=== PATIENT | male | born 1950 | race Caucasian/White ===

== ENCOUNTER 2025-05-01 17:53 | Inpatient (IN) ==
[2025-05-01 19:25] LABS: Basophils # (Auto) 0.04 K/mcL (0.00-0.30); Basophils % (Auto) 0.3 % (0.0-2.0); Eosinophils # (Auto) 0.16 K/mcL (0.00-0.70); Eosinophils % (Auto) 1.3 % (0.0-7.0); Hematocrit 43.2 % (40.1-51.0); Hemoglobin 15.2 g/dL (13.7-17.5); Lymphocytes # (Auto) 1.43 K/mcL (1.50-4.80); Lymphocytes % (Auto) 12.0 % (15.5-49.0); Mean Corpuscular HGB Conc 35.2 g/dL (31.0-36.0); Monocytes # (Auto) 0.96 K/mcL (0.10-0.90); Monocytes % (Auto) 8.0 % (1.0-12.0); Neutrophils % (Auto) 78.1 % (38.0-78.0); Platelet Count 230 K/mcL (140-440); RBC 4.77 M/mcL (4.63-6.08); WBC 11.9 K/mcL (4.5-11.0)
[2025-05-01 19:45] LABS: ALT/SGPT 38 U/L (<40); AST/SGOT 26 U/L (<40); Albumin 4.3 gm/dL (3.2-5.2); Albumin/Globulin Ratio 1.7 (1.0-2.3); Alkaline Phosphatase 69 U/L (39-117); Anion Gap 14.0 (8.0-16.0); Bilirubin,Total 0.4 mg/dL (0.1-1.0); Blood Urea Nitrogen 9 mg/dL (8-23); Calcium 9.8 mg/dL (8.6-10.4); Carbon Dioxide 22 mmol/L (22-30); Chloride 100 mmol/L (96-108); Globulin 2.6 gm/dL (2.2-3.7); Glucose 118 mg/dL (70-105); Potassium 3.6 mmol/L (3.3-5.1); Sodium 136 mmol/L (133-145)
[2025-05-01 19:46] LABS: INR 0.9 (0.9-1.1); Prothrombin Time 12.9 sec (11.9-14.5)
[2025-05-01] MEDS ORDERED: DEXTROSE 50% 50 ML VIAL IV PRN (21:27)
[2025-05-01] MEDS ORDERED: ONDANSETRON 4 MG/2 ML VIAL IV PRN (21:27)
[2025-05-01] MEDS ORDERED: DEXTROSE 31 GM ORAL.SUSP PO PRN (21:27)
[2025-05-01] MEDS ORDERED: ACETAMINOPHEN 325 MG TABLET PO PRN (21:27)
[2025-05-01] MEDS ORDERED: MELATONIN 3 MG TABLET PO PRN (21:27)
[2025-05-01] MEDS ORDERED: MAG HYDROX/AL HYDROX/SIMETH 30 ML ORAL.SUSP PO PRN (21:27)
[2025-05-01] MEDS ORDERED: IPRATROPIUM/ALBUTEROL 3 ML AMPUL.NEB NEB PRN (21:27)
[2025-05-01] MEDS: LACTATED RINGERS 1,000 ML IV SCH (21:36)
[2025-05-01] MEDS: 0.9 % SODIUM CHLORIDE 10 ML SYRINGE IV SCH (21:44)
[2025-05-01] MEDS: INSULIN GLARGINE, HUMAN 1 UNIT/0.01 ML SQ SCH (21:54)
[2025-05-01] MEDS: PSYLLIUM HUSK 5.8 GM PACKET PO SCH (21:55)
[2025-05-01] MEDS: CARBOXYMETHYLCELLULOSE SODIUM 1 EACH DROPER.GEL OU SCH (21:55)
[2025-05-01] MEDS: ACETAMINOPHEN 1,000 MG/100 ML BAG IV PRN (23:22)
[2025-05-02 06:49] LABS: Basophils # (Auto) 0.03 K/mcL (0.00-0.30); Basophils % (Auto) 0.3 % (0.0-2.0); Eosinophils # (Auto) 0.30 K/mcL (0.00-0.70); Eosinophils % (Auto) 3.3 % (0.0-7.0); Hematocrit 42.1 % (40.1-51.0); Hemoglobin 14.7 g/dL (13.7-17.5); Lymphocytes # (Auto) 1.06 K/mcL (1.50-4.80); Lymphocytes % (Auto) 11.5 % (15.5-49.0); Mean Corpuscular HGB Conc 34.9 g/dL (31.0-36.0); Monocytes # (Auto) 0.72 K/mcL (0.10-0.90); Monocytes % (Auto) 7.8 % (1.0-12.0); Neutrophils % (Auto) 76.8 % (38.0-78.0); Platelet Count 235 K/mcL (140-440); RBC 4.63 M/mcL (4.63-6.08); WBC 9.2 K/mcL (4.5-11.0)
[2025-05-02 07:06] LABS: Anion Gap 13.0 (8.0-16.0); Blood Urea Nitrogen 9 mg/dL (8-23); Calcium 9.4 mg/dL (8.6-10.4); Carbon Dioxide 22 mmol/L (22-30); Chloride 100 mmol/L (96-108); Glucose 178 mg/dL (70-105); Potassium 3.7 mmol/L (3.3-5.1); Sodium 135 mmol/L (133-145)
[2025-05-02] MEDS: INSULIN LISPRO 1 UNIT/0.01 ML UNIT SQ SCH (07:47)
[2025-05-02] MEDS: LEVOTHYROXINE 150 MCG TABLET PO SCH (08:03)
[2025-05-02] MEDS: FISH OIL 1,000 MG CAPSULE PO SCH (08:03)
[2025-05-02] MEDS: TAMSULOSIN 0.4 MG CAPSULE PO SCH (08:03)
[2025-05-02] MEDS: POLYETHYLENE GLYCOL 3350 17 GM PACKET PO SCH (08:04)
[2025-05-02] MEDS ORDERED: NON FORMULARY MEDICATION 1 DOSE MISCELL (Losartan-Hydrochlorothiazide 100-12.5 mg tablet) PO SCH (09:00)
[2025-05-02] MEDS ORDERED: TRANEXAMIC ACID 1,000 MG/10 ML VIAL ONE ×2 (11:38→13:17)
[2025-05-02] MEDS ORDERED: PROPOFOL 200 MG/20 ML VIAL IV ONE ×2 (11:38→12:33)
[2025-05-02] MEDS ORDERED: ONDANSETRON 4 MG/2 ML VIAL ONE (11:38)
[2025-05-02] MEDS ORDERED: DEXAMETHASONE 10 MG/ML VIAL ONE (11:38)
[2025-05-02] MEDS ORDERED: LIDOCAINE 2% PF 5 ML VIAL ONE (11:38)
[2025-05-02] MEDS ORDERED: GLYCOPYRROLATE 0.2 MG/ML VIAL IV ONE ×2 (11:38→13:00)
[2025-05-02] MEDS ORDERED: fentaNYL 100 MCG/2 ML VIAL ONE (11:39)
[2025-05-02] MEDS ORDERED: ROCURONIUM 10 MG/ML ML IV ONE ×3 (11:39→13:01)
[2025-05-02] MEDS ORDERED: SUGAMMADEX SODIUM 200 MG/2 ML VIAL IV ONE (11:40)
[2025-05-02] MEDS ORDERED: IPRATROPIUM/ALBUTEROL 3 ML AMPUL.NEB NEB PRN ×2 (12:00→12:57)
[2025-05-02] MEDS ORDERED: SCOPOLAMINE 1 PATCH PATCH TOPICAL PRN (12:00)
[2025-05-02] MEDS: ceFAZolin 3 GM in DEXTROSE 5% IN WATER 50 ML IV SCH (12:02)
[2025-05-02] MEDS ORDERED: PHENYLephrine 1 MG/10 ML SYRINGE (ANEST) ONE (12:21)
[2025-05-02] MEDS ORDERED: PHENYLEPHRINE 10 MG/ML VIAL ONE (12:22)
[2025-05-02] MEDS ORDERED: FAMOTIDINE/PF 20 MG/2 ML VIAL IV ONE (12:39)
[2025-05-02] MEDS ORDERED: VASOPRESSIN 20 UNIT/ML VIAL ONE (12:46)
[2025-05-02] MEDS ORDERED: ALBUTEROL SULFATE 60 PUFF INHALER ONE (12:55)
[2025-05-02] MEDS ORDERED: ONDANSETRON 4 MG/2 ML VIAL IV PRN ×2 (12:57→13:48)
[2025-05-02] MEDS ORDERED: METHOCARBAMOL 1,000 MG/10 ML VIAL IV PRN (12:57)
[2025-05-02] MEDS ORDERED: BENZOCAINE/MENTHOL 1 LOZENGE PO PRN ×2 (12:57→13:48)
[2025-05-02] MEDS ORDERED: fentaNYL 100 MCG/2 ML VIAL IV PRN (12:57)
[2025-05-02] MEDS ORDERED: LACTATED RINGERS 1,000 ML IV SCH (13:00)
[2025-05-02] MEDS ORDERED: OMEPRAZOLE 20 MG CAPSULE PO PRN (13:06)
[2025-05-02] MEDS ORDERED: 0.9 % SODIUM CHLORIDE 100 ML IV ONE (13:19)
[2025-05-02] MEDS ORDERED: ePHEDrine 50 MG/ML AMPUL IV ONE (13:58)
[2025-05-02] MEDS: TRANEXAMIC ACID 1,000 MG/10 ML VIAL IV SCH (14:36)
[2025-05-02] MEDS: ACETAMINOPHEN 1,000 MG/100 ML BAG IV ONE (14:52)
[2025-05-02] MEDS: LACTATED RINGERS 1,000 ML IV SCH (16:00)
[2025-05-02] MEDS: 0.9 % SODIUM CHLORIDE 10 ML SYRINGE IV SCH (16:41)
[2025-05-02] MEDS: ASPIRIN 81 MG TAB.CHEW CHEWED SCH (20:07)
[2025-05-02] MEDS: GABAPENTIN 300 MG CAPSULE PO SCH (20:08)
[2025-05-02] MEDS: DOCUSATE SODIUM 100 MG CAPSULE PO SCH (20:08)
[2025-05-03 04:19] LABS: Hematocrit 39.1 % (40.1-51.0); Hemoglobin 13.4 g/dL (13.7-17.5)
[2025-05-03 06:23] LABS: ALT/SGPT 27 U/L (<40); AST/SGOT 26 U/L (<40); Albumin 3.9 gm/dL (3.2-5.2); Albumin/Globulin Ratio 1.6 (1.0-2.3); Alkaline Phosphatase 59 U/L (39-117); Anion Gap 14.0 (8.0-16.0); Bilirubin,Direct < 0.2 mg/dL (0-0.3); Bilirubin,Total 0.4 mg/dL (0.1-1.0); Blood Urea Nitrogen 10 mg/dL (8-23); Calcium 9.0 mg/dL (8.6-10.4); Carbon Dioxide 20 mmol/L (22-30); Chloride 99 mmol/L (96-108); Globulin 2.5 gm/dL (2.2-3.7); Glucose 269 mg/dL (70-105); Phosphorous 2.5 mg/dL (2.5-4.5); Potassium 4.0 mmol/L (3.3-5.1); Sodium 133 mmol/L (133-145); Triglycerides 158 mg/dL (<150); Uric Acid 4.2 mg/dL (2.5-8.0)
[2025-05-03 06:32] LABS: Basophils # (Auto) 0.02 K/mcL (0.00-0.30)
[2025-05-03] MEDS ORDERED: ENOXAPARIN 40 MG/0.4 ML SYRINGE SQ SCH (09:00)
[2025-05-03 09:12] LABS: Hematocrit 39.5 % (40.1-51.0); Hemoglobin 13.5 g/dL (13.7-17.5)
[2025-05-03] MEDS: 0.9 % SODIUM CHLORIDE 250 ML IV SCH (09:32)
[2025-05-03 09:36] LABS: Basophils % (Auto) 0.2 % (0.0-2.0); Eosinophils # (Auto) 0.05 K/mcL (0.00-0.70); Eosinophils % (Auto) 0.4 % (0.0-7.0); Hematocrit 39.7 % (40.1-51.0); Hemoglobin 13.8 g/dL (13.7-17.5); Lymphocytes # (Auto) 0.71 K/mcL (1.50-4.80); Lymphocytes % (Auto) 6.0 % (15.5-49.0); Mean Corpuscular HGB Conc 34.8 g/dL (31.0-36.0); Monocytes # (Auto) 0.94 K/mcL (0.10-0.90); Monocytes % (Auto) 7.9 % (1.0-12.0); Neutrophils % (Auto) 85.2 % (38.0-78.0); Platelet Count 200 K/mcL (140-440); RBC 4.29 M/mcL (4.63-6.08); WBC 11.9 K/mcL (4.5-11.0)
[2025-05-03 11:44] LABS: Estimated Average Glucose(eAG) 189.0 mg/dL; Hemoglobin A1C 8.2 % Hgb (4.0-6.0)
[2025-05-03] MEDS: ACETAMINOPHEN 500 MG TABLET PO PRN (15:18)
[2025-05-03] MEDS: PSYLLIUM HUSK 5.8 GM PACKET PO SCH (15:19)
[2025-05-03] MEDS: METHOCARBAMOL 750 MG TABLET PO PRN (15:19)
[2025-05-03] MEDS: SENNOSIDES 1 TABLET PO SCH (20:32)
[2025-05-03] MEDS: INSULIN GLARGINE, HUMAN 1 UNIT/0.01 ML SQ SCH (20:33)
[2025-05-04 06:01] LABS: Hematocrit 36.2 % (40.1-51.0); Hemoglobin 12.4 g/dL (13.7-17.5)
[2025-05-04 11:21] VITALS: O2SAT 96
[2025-05-04 15:22] VITALS: TEMP 98.6
== END 2025-05-04 15:15 | disposition home or self-care (01) | DRG 522 ==
LOC: ED 17:53 → MEDSUR 21:24 → ICU 05-02 15:40 → MEDSUR 05-03 16:37
PROVIDERS: ADMIT Student in an Organized Health Care Education/Training Program; ATTEND Internal Medicine